=== PATIENT | male | born 1945 | race Caucasian/White ===

== ENCOUNTER → 2024-03-03 11:11 | Outpatient (REF) | payer OTHER, SELFPAY | LOC: DHCBC/DCA 11:11 | PROVIDERS: ATTENDING PHYSICIAN Internal Medicine Cardiovascular Disease | DX: R06.02 Shortness of breath (principal) | CPT/HCPCS: 78452; 93017; A9500 ==

== ENCOUNTER → 2024-03-22 13:52 | Outpatient (REF) | payer OTHER, SELFPAY | LOC: HWRCS 13:52 | PROVIDERS: ATTENDING PHYSICIAN Internal Medicine Cardiovascular Disease | DX: I25.10 Atherosclerotic heart disease of native coronary artery without angina pectoris (principal); R06.02 Shortness of breath | CPT/HCPCS: 93306 ==